=== PATIENT | male | born 1990 | race Caucasian/White ===

== ENCOUNTER 2017-02-27 14:08 | Emergency (ER) | payer OTHER ==
[~2017-02-27] VITALS: Ht 182.9 cm; Wt 106.6 kg
[~2017-02-27 14:08] MED LIST: BACTRIM DS TAB1 EACH PO; FLEXERIL10 MG PO; IBUPROFEN800 M1 PO; KEFLEX500 M1 PO; MOTRIN800 MG PO; TRAMADOL50 MG PO
[2017-02-27 14:22] VITALS: BP 142/76
--- NOTE | 2017-02-27 14:54 | ED ANIMAL BITE/WOUND CHECK ---
History of Present Illness General Chief Complaint: Suture Removal/Wound Recheck Stated Complaint: WOUND CHECK Source: patient Exam Limitations: no limitations Vital Signs & Intake/Output Vital Signs & Intake/Output Vital Signs Date Time Temp Pulse Resp B/P B/P Pulse O2 O2 Flow FiO2 Mean Ox Delivery Rate 02/27 1422 96.5 75 14 142/76 98 Room Air Allergies Coded Allergies: No Known Allergies (11/17/15) Reconcile Medications Cephalexin (Keflex) 500 MG CAPSULE 1 CAP PO 4 TIMES/DAY ABSCESS/INFECTION Ibuprofen 800 MG TABLET 1 TAB PO TID PRN PAIN Sulfamethoxazole/Trimethoprim (Bactrim Ds Tablet) 800 MG-160 MG TABLET 1 TAB PO BID INFECTION/ABSCESS Triage Note: 26 Y/O MALE STATES HE WAS TOLD TO RETURN FOR WOUND CHECK; STATES HE HAD ABCESS ON ABDOMEN DRAINED SUNDAY OVERNIGHT. STATES HE HAS NOT VISUALIZED AREA BUT FEELS "THE SAME". HAS BEEN TAKING PRESCRIBED ANTIBIOTICS. AFEBRILE. Triage Nurses Notes Reviewed? yes Onset: Gradual Duration: day(s): Timing: recent history Is Injury an Animal Bite? No HPI: 26yo male presents to ED for wound recheck. Patient was here two days ago and his abscess on his left lower abdomen was drained. PAtient was started on Bactrim and Keflex, he has been taking his antibiotics as prescribed. He states he feels a lot better. He notes that the swelling from his abscess and decreased but the redness around his abscess increased. He denies fevers, chills, or abdominal pain. (NATALIA NGUYEN) Past History Travel History Traveled to [place] past 21 day No Medical History Any Pertinent Medical History? 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 No (NATALIA NGUYEN) Review of Systems Review of Systems Constitutional: Reports: no symptoms. EENTM: Reports: no symptoms. Respiratory: Reports: no symptoms. Cardiovascular: Reports: no symptoms. GI: Reports: no symptoms. Genitourinary: Reports: no symptoms. Musculoskeletal: Reports: no symptoms. Skin: Reports: see HPI. Neurological/Psychological: Reports: no symptoms. Hematologic/Endocrine: Reports: no symptoms. Immunologic/Allergic: Reports: no symptoms. All Other Systems: Reviewed and Negative (NATALIA NGUYEN) Physical Exam Physical Exam General Appearance: well developed/nourished, no apparent distress, alert, awake Head: atraumatic, normal appearance Eyes: Bilateral: normal appearance, EOMI. Ears, Nose, Throat: hearing grossly normal Neck: normal inspection, supple Respiratory: no respiratory distress Back: normal inspection Extremities: normal range of motion Neurologic/Psych: awake, alert, oriented x 3 Skin: Left lower abdomen: 1cm incision site in skin with surrounding about 16cmx 9cm area of erythema (NATALIA NGUYEN) Progress Differential Diagnosis: abscess, cellulitis, tenosysnovitis, contact dermatitis Plan of Care: Patient is sitting comfortably in stretcher, he is in no acute distress, non toxic appearing. His abcess is open, not draining. Area of erythema around abscess has increased in size however patient is currently on dual antibiotic coverage with Bactrim and Keflex. Patient was instructed to keep taking his antibiotics, use warm baths/showers, and follow up for a second wound recheck on Sunday evening. He is in agreement with plan of care. The redness around the abscess is where the tape was. It is likely that this is a contact dermatitis from the tape. Patient was instructed to return for another wound check in 3 days and only use a small Band-Aid over the abscess. Patient reports that he feels significantly better. Patient understands and agrees with plan of care. (NATALIA NGUYEN) Departure Departure Disposition: HOME OR SELF CARE Condition: Stable Clinical Impression Primary Impression: Wound check, abscess Referrals: PATIENT HAS NO PRIMARY CARE DR (PCP/Family) Additional Instructions: Follow up here in three days for a second wound check, Place band-aids over wound. Take warm showers and baths, no heavy scrubing over area. Continue to take antibiotics as prescribed. Follow up sooner with any concerns or worsening symptoms. Please go over all results of today's visit with your primary care doctor. Contact your primary care doctor to let them know you were here in the emergency room. There may be nonspecific findings which may not be related to your visit today here in the emergency room but may require further evaluation and chronic monitoring by your primary care doctor. If you had a laceration today the chance of foreign body always remains. You should follow-up with your primary care doctor for recheck in 3-5 days for a wound check. If you had an x-ray done there is a chance that a fracture could have been missed on initial read and you should follow-up with your primary care doctor for repeat x-rays if symptoms persist. If your blood pressure was elevated here in the emergency room please have rechecked by her primary care doctor within the next 48 hours by your primary care doctor. If you were prescribed a narcotic here in the emergency room or any type of controlled substances you're not allowed to drive while taking this medication or operate any type of heavy machinery. Narcotics can make you feel lightheaded dizziness nausea and can cause constipation. You may need to picker operator a stool softener. Thank you for choosing [facility] emergency room. Please return to the emergency room immediately if you have any other concerns worsening of symptoms. Departure Forms: Customer Survey General Discharge Information (NATALIA NGUYEN) PA/DISTRIBUTION SYSTEMS SUPERINTENDENT Co-Sign Statement Statement: ED Attending supervision documentation- [] I saw and evaluated the patient. I have also reviewed all the pertinent lab results and diagnostic results. I agree with the findings and the plan of care as documented in the PA's/DISTRIBUTION SYSTEMS SUPERINTENDENT's documentation. [X] I have reviewed the ED Record and agree with the PA's/DISTRIBUTION SYSTEMS SUPERINTENDENT's documentation. [] Additions or exceptions (if any) to the PAs/DISTRIBUTION SYSTEMS SUPERINTENDENT's note and plan are summarized below: [] (MAURA CANDELARIA,ANGIE)
== END 2017-02-27 14:59 ==
LOC: ERH 14:08
DX: Z48.01 Encounter for change or removal of surgical wound dressing (principal)
CPT/HCPCS: 99281